=== PATIENT | female | born 1995 | race Two or more races ===

== ENCOUNTER 2022-09-15 16:04 | Outpatient (CLI) | payer OTHER ==
[~2022-09-15 16:04] MED LIST: PRENATA CHEWAB1 EACH PO; ZOFRAN8 MG PO
== END 2022-09-15 17:36 | disposition home or self-care (01) ==
LOC: PRENATAL 16:04
PROVIDERS: ATTEND Obstetrics & Gynecology Maternal & Fetal Medicine
DX: O35.9XX0 Maternal care for (suspected) fetal abnormality and damage, unspecified, not applicable or unspecified (principal); O35.3XX0 Maternal care for (suspected) damage to fetus from viral disease in mother, not applicable or unspecified; Z3A.21 21 weeks gestation of pregnancy